=== PATIENT | female | born 1965 | race Caucasian/White ===

== ENCOUNTER 2023-10-11 12:22 | Inpatient (IN) | payer MEDICARE, OTHER ==
[~2023-10-11] VITALS: Ht 170.1 cm; Wt 55.8 kg
[2023-10-11 12:47] VITALS: BP 120/58
[2023-10-11 13:02] LABS: BASO % 0.4 % (0.0-1.0); HEMATOCRIT 35.7 % (37.0-47.0); LYMPH % 38.3 % (27.0-41.0); MEAN CELL VOLUME 94.7 fl (81.0-99.0); MEAN CORPUSCULAR HGB 31.3 pg (27.0-31.0); MEAN CORPUSCULAR HGB CONC 33.1 g/dl (33.0-37.0); MEAN PLATELET VOLUME 8.2 fl (9.6-12.3); MONO # 0.6 10*3/uL (0.1-1.0); MONO % 10.6 % (3.0-9.0); NEUT # 2.6 10*3/uL (2.3-7.9); NEUT % 50.3 % (47.0-73.0); PLATELET COUNT AUTOMATED 199 10*3/uL (130-400); RED BLOOD COUNT 3.77 10*6/uL (4.10-5.10); RED CELL DISTRI WIDTH 13.2 % (0-14.5); WHITE BLOOD COUNT 5.2 10*3/uL (4.8-10.8)
[2023-10-11 13:24] LABS: ALKALINE PHOSPHATASE 50 U/L (46-116); BUN 6 mg/dl (9-23); CHLORIDE 96 mmol/L (98-107); POTASSIUM 5.3 mmol/L (3.4-5.1); SGPT/ALT 15 U/L (5-49)
[2023-10-11 13:25] LABS: ETHYL ALCOHOL < 3.0 mg/dl (<3)
[2023-10-11] MEDS ORDERED: BENZTROPINE ME0.5 MG PO (14:13)
[2023-10-11] MEDS ORDERED: BUSPIRONE HYDRO30 MG PO (14:17)
[2023-10-11] MEDS ORDERED: CLONAZEPAM1 MG PO (14:17)
[2023-10-11] MEDS ORDERED: DEPAKOTE ER500 MG PO (14:18)
[2023-10-11] MEDS ORDERED: DULCOLAX STOOL100 MG PO (14:20)
[2023-10-11] MEDS ORDERED: CLARITIN10 MG PO (14:21)
[2023-10-11] MEDS ORDERED: HYDROXYZINE HCL50 MG PO (14:21)
[2023-10-11] MEDS ORDERED: MIRTAZAPINE45 MG PO (14:22)
[2023-10-11] MEDS ORDERED: OLANZAPINE10 MG PO (14:23)
[2023-10-11] MEDS ORDERED: OMEPRAZOLE40 MG PO (14:24)
[2023-10-11] MEDS ORDERED: VITAMIN D325 MCG PO (14:25)
[2023-10-11 14:58] LABS: BILIRUBIN Negative (Negative); BLOOD Negative (Negative); CLARITY Clear (Clear); COLOR Yellow (Yellow); GLUCOSE Negative (Negative); KETONE Negative (Negative); LEUKO ESTERASE Negative (Negative); NITRITE Negative (Negative); PH 7.5 (4.5-8.0); SPECIFIC GRAVITY <= 1.005 (1.001-1.030)
[2023-10-11 15:05] LABS: URINE AMPHETAMINES Negative (1000ng/ml); URINE BARBITURATES Negative (200ng/ml); URINE BENZODIAZEPINES Negative (200ng/ml); URINE CANNABINOIDS (THC) Negative (50ng/ml); URINE COCAINE Negative (300ng/ml); URINE METHADONE Negative (300ng/ml); URINE OPIATES Negative (300ng/ml); URINE PHENCYCLIDINE Negative (25ng/ml)
[2023-10-11 15:17] LABS: EPITHELIAL CELLS 0-2; WBC 0-2 wbc/hpf (0-5)
[2023-10-11 18:58] VITALS: BP 104/60
[2023-10-12 07:36] VITALS: BP 124/93
[2023-10-12 07:46] LABS: ALKALINE PHOSPHATASE 50 U/L (46-116); BUN 8 mg/dl (9-23); CHLORIDE 100 mmol/L (98-107); CHOLESTEROL 214 mg/dL (<200); LDL CHOLESTEROL 111 mg/dL (9-159); POTASSIUM 4.4 mmol/L (3.4-5.1); SGPT/ALT 12 U/L (5-49); TOTAL PROTEIN 6.4 gm/dL (6.0-8.0); TRIGLYCERIDES 118 mg/dl (<150)
[2023-10-12 08:14] LABS: BASO % 0.4 % (0.0-1.0); EOS % 0.1 % (1.0-4.0); HEMATOCRIT 43.1 % (37.0-47.0); LYMPH # 2.3 10*3/uL (1.3-4.4); LYMPH % 32.4 % (27.0-41.0); MEAN CELL VOLUME 95.1 fl (81.0-99.0); MEAN CORPUSCULAR HGB 31.1 pg (27.0-31.0); MEAN CORPUSCULAR HGB CONC 32.7 g/dl (33.0-37.0); MEAN PLATELET VOLUME 8.3 fl (9.6-12.3); MONO # 0.8 10*3/uL (0.1-1.0); MONO % 10.7 % (3.0-9.0); NEUT % 56.1 % (47.0-73.0); PLATELET COUNT AUTOMATED 237 10*3/uL (130-400); RED BLOOD COUNT 4.53 10*6/uL (4.10-5.10); RED CELL DISTRI WIDTH 13.1 % (0-14.5); WHITE BLOOD COUNT 7.1 10*3/uL (4.8-10.8)
[2023-10-12 20:00] VITALS: BP 101/56
[2023-10-13 08:39] VITALS: BP 91/55
[2023-10-13 20:00] VITALS: BP 108/66
[2023-10-14 07:41] VITALS: BP 91/52
[2023-10-14 19:06] LABS: CLONAZEPAM (KLONOPIN),SERUM 21 ng/mL (20-70)
[2023-10-14 20:00] VITALS: BP 106/58
[2023-10-15 07:56] VITALS: BP 89/54
[2023-10-15 20:00] VITALS: BP 99/60
[2023-10-16 07:28] VITALS: BP 81/51
[2023-10-16 07:47] LABS: BUN 9 mg/dl (9-23); CHLORIDE 102 mmol/L (98-107); POTASSIUM 4.3 mmol/L (3.4-5.1)
[2023-10-16 19:13] VITALS: BP 110/39
[2023-10-17 07:42] VITALS: BP 90/58
[2023-10-17 20:00] VITALS: BP 94/52
[2023-10-18 07:57] VITALS: BP 92/45
[2023-10-18 20:00] VITALS: BP 133/85
[2023-10-19 07:51] VITALS: BP 97/55
[2023-10-19 19:36] VITALS: BP 133/60
[2023-10-20 08:50] VITALS: BP 92/51
[2023-10-20 19:14] VITALS: BP 97/54
[2023-10-21 07:46] VITALS: BP 105/54
[2023-10-21 19:08] VITALS: BP 107/50
[2023-10-22 08:51] VITALS: BP 93/56
[2023-10-22 10:59] LABS: BASO # 0.1 10*3/uL (0.0-0.1); BASO % 0.7 % (0.0-1.0); EOS # 0.2 10*3/uL (0.0-0.4); EOS % 2.3 % (1.0-4.0); HEMATOCRIT 38.3 % (37.0-47.0); LYMPH # 2.1 10*3/uL (1.3-4.4); LYMPH % 28.9 % (27.0-41.0); MEAN CORPUSCULAR HGB 31.6 pg (27.0-31.0); MEAN CORPUSCULAR HGB CONC 32.6 g/dl (33.0-37.0); MEAN PLATELET VOLUME 8.4 fl (9.6-12.3); MONO # 0.9 10*3/uL (0.1-1.0); MONO % 12.3 % (3.0-9.0); NEUT % 55.4 % (47.0-73.0); PLATELET COUNT AUTOMATED 289 10*3/uL (130-400); RED BLOOD COUNT 3.95 10*6/uL (4.10-5.10); RED CELL DISTRI WIDTH 13.7 % (0-14.5); WHITE BLOOD COUNT 7.3 10*3/uL (4.8-10.8)
[2023-10-22 11:20] LABS: ALKALINE PHOSPHATASE 54 U/L (46-116); BUN 11 mg/dl (9-23); CHLORIDE 105 mmol/L (98-107); POTASSIUM 5.1 mmol/L (3.4-5.1); SGPT/ALT 17 U/L (5-49); TOTAL PROTEIN 6.7 gm/dL (6.0-8.0)
[2023-10-22 20:00] VITALS: BP 96/63
[2023-10-23 07:29] VITALS: BP 99/58
[2023-10-23 19:09] VITALS: BP 104/55
[2023-10-24 08:00] VITALS: BP 116/56
[2023-10-24 20:00] VITALS: BP 113/57
[2023-10-25 07:37] VITALS: BP 98/62
[2023-10-25] MEDS ORDERED: CLONAZEPAM1 MG PO (08:18)
[2023-10-25] MEDS ORDERED: KLONOPIN2 M1 PO (08:18)
[2023-10-25] MEDS ORDERED: VRAYLAR1.5 MG PO (08:18)
[2023-10-25] MEDS ORDERED: FLUVOXAMINE50 MG PO ×2 (08:18)
[2023-10-25] MEDS ORDERED: HYDROXYZINE HCL25 MG PO (08:18)
== END 2023-10-25 12:00 | disposition home or self-care (01) | DRG 885 ==
LOC: ED 12:22 → 3N 15:41
PROVIDERS: Counselor Professional; Physician Assistant Medical; Registered Nurse; ADMIT Psychiatry & Neurology Psychiatry; ATTEND Psychiatry & Neurology Psychiatry
PROC: GZHZZZZ Group Psychotherapy (ICD-10-PCS; 2023-10-16)
PROC: GZ51ZZZ Individual Psychotherapy, Behavioral (ICD-10-PCS; 2023-10-16)
PROC: 0HBRXZZ Excision of Toe Nail, External Approach (ICD-10-PCS; principal; 2023-10-21)
PROC: 0HBRXZZ Excision of Toe Nail, External Approach (ICD-10-PCS; 2023-10-21)
PROC: 0HBRXZZ Excision of Toe Nail, External Approach (ICD-10-PCS; 2023-10-21)
PROC: 0HBRXZZ Excision of Toe Nail, External Approach (ICD-10-PCS; 2023-10-21)
PROC: 0HBRXZZ Excision of Toe Nail, External Approach (ICD-10-PCS; 2023-10-21)
PROC: 0HBRXZZ Excision of Toe Nail, External Approach (ICD-10-PCS; 2023-10-21)
PROC: 0HBRXZZ Excision of Toe Nail, External Approach (ICD-10-PCS; 2023-10-21)
PROC: 0HBRXZZ Excision of Toe Nail, External Approach (ICD-10-PCS; 2023-10-21)
PROC: 0HBRXZZ Excision of Toe Nail, External Approach (ICD-10-PCS; 2023-10-21)
PROC: 0HBRXZZ Excision of Toe Nail, External Approach (ICD-10-PCS; 2023-10-21)
DX: F25.0 Schizoaffective disorder, bipolar type (principal); F50.9 Eating disorder, unspecified; E87.1 Hypo-osmolality and hyponatremia; Z68.1 Body mass index [BMI] 19.9 or less, adult; F42.9 Obsessive-compulsive disorder, unspecified; R41.9 Unspecified symptoms and signs involving cognitive functions and awareness; F41.1 Generalized anxiety disorder; R91.1 Solitary pulmonary nodule; F45.0 Somatization disorder; K59.00 Constipation, unspecified; B35.1 Tinea unguium; M13.872 Other specified arthritis, left ankle and foot; Z88.0 Allergy status to penicillin; Z79.899 Other long term (current) drug therapy

== ENCOUNTER 2024-01-31 20:46 | Emergency (ER) | payer MEDICARE, OTHER ==
[~2024-01-31 20:46] MED LIST: BENZTROPINE ME0.5 MG PO; BUSPIRONE HYDRO30 MG PO; CLARITIN10 MG PO; CLONAZEPAM1 MG PO; DEPAKOTE ER500 MG PO; DULCOLAX STOOL100 MG PO; FLUVOXAMINE50 MG PO; HYDROXYZINE HCL25 MG PO; HYDROXYZINE HCL50 MG PO; KLONOPIN2 M1 PO; MIRTAZAPINE45 MG PO; OLANZAPINE10 MG PO; OMEPRAZOLE40 MG PO; VITAMIN D325 MCG PO; VRAYLAR1.5 MG PO
[2024-01-31] MEDS ORDERED: ACETAMINOPHEN 325 MG TAB PO ONE (20:55)
[2024-01-31 21:10] LABS: BASO % 0.4 % (0.0-1.0); EOS % 0.2 % (1.0-4.0); HEMATOCRIT 39.8 % (37.0-47.0); LYMPH # 3.2 10*3/uL (1.3-4.4); LYMPH % 38.7 % (27.0-41.0); MEAN CELL VOLUME 92.6 fl (81.0-99.0); MEAN CORPUSCULAR HGB 30.5 pg (27.0-31.0); MEAN CORPUSCULAR HGB CONC 32.9 g/dl (33.0-37.0); MONO # 0.7 10*3/uL (0.1-1.0); MONO % 7.8 % (3.0-9.0); NEUT # 4.4 10*3/uL (2.3-7.9); NEUT % 52.7 % (47.0-73.0); PLATELET COUNT AUTOMATED 272 10*3/uL (130-400); RED CELL DISTRI WIDTH 12.8 % (0-14.5); WHITE BLOOD COUNT 8.3 10*3/uL (4.8-10.8)
[2024-01-31 21:30] LABS: ALKALINE PHOSPHATASE 79 U/L (46-116); BUN 8 mg/dl (9-23); CHLORIDE 106 mmol/L (98-107); LIPASE 61 U/L (12-53); POTASSIUM 4.5 mmol/L (3.4-5.1); SGPT/ALT 30 U/L (5-49); TOTAL PROTEIN 6.6 gm/dL (6.0-8.0)
[2024-01-31] MEDS ORDERED: Ondansetron Hydrochloride 4 MG/2 ML VIAL IV ONE (21:50)
== END 2024-02-01 08:15 | disposition home or self-care (01) ==
LOC: ED 20:46
PROVIDERS: Physician Assistant Medical
DX: K56.7 Ileus, unspecified (principal); F17.210 Nicotine dependence, cigarettes, uncomplicated; Z79.899 Other long term (current) drug therapy; Z98.51 Tubal ligation status

== ENCOUNTER 2024-02-11 08:34 | Emergency (ER) | payer MEDICARE, OTHER ==
[~2024-02-11] VITALS: Ht 170.1 cm; Wt 49.9 kg
[2024-02-11 08:58] LABS: BASO # 0.1 10*3/uL (0.0-0.1); BASO % 0.8 % (0.0-1.0); EOS % 0.1 % (1.0-4.0); HEMATOCRIT 44.4 % (37.0-47.0); LYMPH # 2.2 10*3/uL (1.3-4.4); LYMPH % 30.4 % (27.0-41.0); MEAN CELL VOLUME 93.3 fl (81.0-99.0); MEAN CORPUSCULAR HGB 30.7 pg (27.0-31.0); MEAN CORPUSCULAR HGB CONC 32.9 g/dl (33.0-37.0); MEAN PLATELET VOLUME 8.8 fl (9.6-12.3); MONO # 0.6 10*3/uL (0.1-1.0); MONO % 8.1 % (3.0-9.0); NEUT # 4.3 10*3/uL (2.3-7.9); NEUT % 60.5 % (47.0-73.0); PLATELET COUNT AUTOMATED 271 10*3/uL (130-400); RED BLOOD COUNT 4.76 10*6/uL (4.10-5.10); WHITE BLOOD COUNT 7.2 10*3/uL (4.8-10.8)
[2024-02-11 09:09] LABS: ACT PARTIAL THROMBO TIME 25.1 SECONDS (20.0-32.1)
[2024-02-11 09:19] LABS: ALKALINE PHOSPHATASE 87 U/L (46-116); BUN 6 mg/dl (9-23); CHLORIDE 102 mmol/L (98-107); POTASSIUM 3.8 mmol/L (3.4-5.1); SGPT/ALT 29 U/L (5-49); TOTAL PROTEIN 7.3 gm/dL (6.0-8.0)
[2024-02-11] MEDS ORDERED: PREDNISONE20 M1 PO (09:27)
[2024-02-11] MEDS ORDERED: ANTIBIOTIC28.4 GM T (09:27)
[2024-02-11] MEDS ORDERED: CEPHALEXIN500 M1 PO (09:27)
== END 2024-02-11 09:34 | disposition home or self-care (01) ==
LOC: ED 08:34
PROVIDERS: Internal Medicine
DX: L25.9 Unspecified contact dermatitis, unspecified cause (principal); F31.9 Bipolar disorder, unspecified; F41.9 Anxiety disorder, unspecified; F25.9 Schizoaffective disorder, unspecified; F17.210 Nicotine dependence, cigarettes, uncomplicated; Z88.0 Allergy status to penicillin; Z98.51 Tubal ligation status; Z98.890 Other specified postprocedural states

== ENCOUNTER 2024-02-28 10:35 | Emergency (ER) | payer MEDICARE, OTHER ==
[~2024-02-28] VITALS: Ht 165.1 cm; Wt 45.4 kg
[~2024-02-28 10:35] MED LIST changes: +ANTIBIOTIC28.4 GM T; +CEPHALEXIN500 M1 PO; +PREDNISONE20 M1 PO
[2024-02-28] MEDS ORDERED: B12 ACTIVE1000 MCG PO (10:40)
[2024-02-28] MEDS ORDERED: FLUVOXAMINE100 MG PO (10:46)
[2024-02-28] MEDS ORDERED: DONEPEZIL HYDRO10 M1 PO (10:52)
[2024-02-28] MEDS ORDERED: IOHEXOL 300 MG/ML 100 ML VIAL IV ONE (11:20)
[2024-02-28] MEDS ORDERED: IOHEXOL 300 MG/ML 100 ML VIAL ONE (11:27)
[2024-02-28 11:33] LABS: BASO # 0.1 10*3/uL (0.0-0.1); BASO % 0.7 % (0.0-1.0); HEMATOCRIT 39.9 % (37.0-47.0); LYMPH # 1.8 10*3/uL (1.3-4.4); LYMPH % 25.6 % (27.0-41.0); MEAN CELL VOLUME 93.2 fl (81.0-99.0); MEAN CORPUSCULAR HGB 30.8 pg (27.0-31.0); MEAN CORPUSCULAR HGB CONC 33.1 g/dl (33.0-37.0); MEAN PLATELET VOLUME 8.4 fl (9.6-12.3); MONO # 0.7 10*3/uL (0.1-1.0); MONO % 9.6 % (3.0-9.0); NEUT # 4.3 10*3/uL (2.3-7.9); NEUT % 63.2 % (47.0-73.0); PLATELET COUNT AUTOMATED 245 10*3/uL (130-400); RED BLOOD COUNT 4.28 10*6/uL (4.10-5.10); RED CELL DISTRI WIDTH 13.5 % (0-14.5); WHITE BLOOD COUNT 6.9 10*3/uL (4.8-10.8)
[2024-02-28 11:41] LABS: ACT PARTIAL THROMBO TIME 22.7 SECONDS (20.0-32.1)
[2024-02-28 11:53] LABS: ALKALINE PHOSPHATASE 50 U/L (46-116); BUN 6 mg/dl (9-23); CHLORIDE 106 mmol/L (98-107); POTASSIUM 4.9 mmol/L (3.4-5.1); SGPT/ALT 23 U/L (5-49)
[2024-02-28 11:58] LABS: ETHYL ALCOHOL < 3.0 mg/dl (<3)
== END 2024-02-28 15:00 | disposition home or self-care (01) ==
LOC: ED 10:35
PROVIDERS: Emergency Medicine
DX: K62.5 Hemorrhage of anus and rectum (principal); F50.9 Eating disorder, unspecified; R41.0 Disorientation, unspecified; F41.9 Anxiety disorder, unspecified; F25.9 Schizoaffective disorder, unspecified; F17.210 Nicotine dependence, cigarettes, uncomplicated; Z88.0 Allergy status to penicillin; Z79.899 Other long term (current) drug therapy; Z98.51 Tubal ligation status

== ENCOUNTER → 2024-03-05 | Outpatient (CLI) | payer MEDICARE, OTHER ==
[~2024-03-05] MED LIST changes: +B12 ACTIVE1000 MCG PO; +DONEPEZIL HYDRO10 M1 PO; +FLUVOXAMINE100 MG PO
[2024-03-05 12:55] LABS: URINE AMPHETAMINES Negative (1000ng/ml); URINE BARBITURATES Negative (200ng/ml); URINE BENZODIAZEPINES Negative (200ng/ml); URINE CANNABINOIDS (THC) Negative (50ng/ml); URINE COCAINE Negative (300ng/ml); URINE METHADONE Negative (300ng/ml); URINE OPIATES Negative (300ng/ml); URINE PHENCYCLIDINE Negative (25ng/ml)
== END | disposition home or self-care (01) ==
LOC: LAB 12:15
PROVIDERS: ATTEND Nurse Practitioner Family
DX: Z79.899 Other long term (current) drug therapy (principal)

== ENCOUNTER 2024-05-27 18:13 | Emergency (ER) | payer MEDICARE, OTHER ==
[~2024-05-27] VITALS: Ht 170.1 cm; Wt 89.4 kg
[2024-05-27] MEDS ORDERED: Bacitracin Zinc 14 GM TUBE T ONE (18:20)
[2024-05-27] MEDS ORDERED: IBUPROFEN 800 MG TAB PO ONE (18:20)
[2024-05-27] MEDS ORDERED: XEROFORM PETRO1 EAC2 TD (18:22)
[2024-05-27] MEDS ORDERED: ANTIBIOTIC28.4 GM T (18:22)
[2024-05-27] MEDS ORDERED: IBU800 M2 PO (18:22)
== END 2024-05-27 18:37 | disposition home or self-care (01) ==
LOC: ED 18:13
DX: T23.202A Burn of second degree of left hand, unspecified site, initial encounter (principal); T31.0 Burns involving less than 10% of body surface; F41.9 Anxiety disorder, unspecified; F31.9 Bipolar disorder, unspecified; F17.210 Nicotine dependence, cigarettes, uncomplicated; Z88.0 Allergy status to penicillin; Z98.51 Tubal ligation status; Z98.890 Other specified postprocedural states; X10.0XXA Contact with hot drinks, initial encounter; Y93.89 Activity, other specified; Y92.89 Other specified places as the place of occurrence of the external cause; Y99.8 Other external cause status

== ENCOUNTER 2024-06-01 13:42 | Emergency (ER) | payer MEDICARE, OTHER ==
[~2024-06-01] VITALS: Ht 167.6 cm; Wt 45.4 kg
[~2024-06-01 13:42] MED LIST changes: +IBU800 M2 PO; +XEROFORM PETRO1 EAC2 TD
[2024-06-01] MEDS ORDERED: Bacitracin Zinc 14 GM TUBE T ONE (14:25)
[2024-06-01] MEDS ORDERED: CEPHALEXIN500 M1 PO (14:27)
== END 2024-06-01 14:32 | disposition home or self-care (01) ==
LOC: ED 13:42
DX: T23.202A Burn of second degree of left hand, unspecified site, initial encounter (principal); T31.0 Burns involving less than 10% of body surface; F31.9 Bipolar disorder, unspecified; F41.9 Anxiety disorder, unspecified; F17.210 Nicotine dependence, cigarettes, uncomplicated; Z88.0 Allergy status to penicillin; Z98.51 Tubal ligation status; Z98.890 Other specified postprocedural states; X10.0XXA Contact with hot drinks, initial encounter; Y93.89 Activity, other specified; Y92.009 Unspecified place in unspecified non-institutional (private) residence as the place of occurrence of the external cause; Y99.8 Other external cause status

== ENCOUNTER 2024-06-16 13:25 | Emergency (ER) | payer MEDICARE, OTHER ==
[~2024-06-16] VITALS: Ht 165.1 cm; Wt 43.5 kg
[2024-06-16] MEDS ORDERED: PREPARATION H26 GM T (14:01)
[2024-06-16] MEDS ORDERED: Bacitracin Zinc 14 GM TUBE T ONE (14:05)
== END 2024-06-16 14:25 | disposition home or self-care (01) ==
LOC: ED 13:25
DX: K64.9 Unspecified hemorrhoids (principal); T23.009A Burn of unspecified degree of unspecified hand, unspecified site, initial encounter; T31.0 Burns involving less than 10% of body surface; F41.9 Anxiety disorder, unspecified; E87.1 Hypo-osmolality and hyponatremia; F31.9 Bipolar disorder, unspecified; F17.210 Nicotine dependence, cigarettes, uncomplicated; Z88.0 Allergy status to penicillin; Z98.51 Tubal ligation status; Z98.890 Other specified postprocedural states; X10.0XXA Contact with hot drinks, initial encounter; Y93.89 Activity, other specified; Y92.009 Unspecified place in unspecified non-institutional (private) residence as the place of occurrence of the external cause; Y99.8 Other external cause status

== ENCOUNTER 2024-06-27 17:48 | Emergency (ER) | payer MEDICARE, OTHER ==
[~2024-06-27] VITALS: Ht 170.1 cm; Wt 42.8 kg
[~2024-06-27 17:48] MED LIST changes: +PREPARATION H26 GM T
[2024-06-27] MEDS ORDERED: ACETAMINOPHEN 325 MG TAB PO ONE (18:10)
[2024-06-27 18:12] LABS: BASO % 0.7 % (0.0-1.0); EOS % 0.2 % (1.0-4.0); HEMATOCRIT 37.4 % (37.0-47.0); LYMPH # 1.7 10*3/uL (1.3-4.4); LYMPH % 30.7 % (27.0-41.0); MEAN CORPUSCULAR HGB 31.4 pg (27.0-31.0); MEAN CORPUSCULAR HGB CONC 33.4 g/dl (33.0-37.0); MEAN PLATELET VOLUME 8.7 fl (9.6-12.3); MONO # 0.5 10*3/uL (0.1-1.0); MONO % 9.5 % (3.0-9.0); NEUT # 3.3 10*3/uL (2.3-7.9); NEUT % 58.9 % (47.0-73.0); PLATELET COUNT AUTOMATED 283 10*3/uL (130-400); RED BLOOD COUNT 3.98 10*6/uL (4.10-5.10); RED CELL DISTRI WIDTH 13.3 % (0-14.5); WHITE BLOOD COUNT 5.7 10*3/uL (4.8-10.8)
[2024-06-27] MEDS ORDERED: IOHEXOL 300 MG/ML 100 ML VIAL IV ONE (18:15)
[2024-06-27 18:31] LABS: ALKALINE PHOSPHATASE 83 U/L (46-116); BUN 6 mg/dl (9-23); CHLORIDE 104 mmol/L (98-107); LIPASE 59 U/L (12-53); POTASSIUM 3.5 mmol/L (3.4-5.1); SGPT/ALT 24 U/L (5-49); TOTAL PROTEIN 6.5 gm/dL (6.0-8.0)
[2024-06-27 18:35] LABS: BILIRUBIN Negative (Negative); BLOOD Negative (Negative); CLARITY Clear (Clear); COLOR Yellow (Yellow); GLUCOSE Negative (Negative); KETONE Negative (Negative); LEUKO ESTERASE Negative (Negative); NITRITE Negative (Negative); SPECIFIC GRAVITY <= 1.005 (1.001-1.030); UROBILINOGEN 0.2 E.U./dl (0.0-1.0)
[2024-06-27 18:42] LABS: EPITHELIAL CELLS 0-2; WBC 0-2 wbc/hpf (0-5)
[2024-06-27] MEDS ORDERED: SODIUM CHLORIDE 0.9% 500 ML IV ONE (20:30)
[2024-06-27] MEDS ORDERED: MIRALAX POWDER17 G1 PO (22:51)
== END 2024-06-27 22:59 | disposition home or self-care (01) ==
LOC: ED 17:48
PROVIDERS: Emergency Medicine
DX: K59.00 Constipation, unspecified (principal); Z20.822 Contact with and (suspected) exposure to COVID-19; R51.9 Headache, unspecified; F41.9 Anxiety disorder, unspecified; F31.9 Bipolar disorder, unspecified; F17.210 Nicotine dependence, cigarettes, uncomplicated; Z88.0 Allergy status to penicillin; Z98.51 Tubal ligation status; Z98.890 Other specified postprocedural states

== ENCOUNTER 2024-06-30 17:56 | Emergency (ER) | payer MEDICARE, OTHER ==
[~2024-06-30 17:56] MED LIST changes: +MIRALAX POWDER17 G1 PO
[2024-06-30] MEDS ORDERED: ACETAMINOPHEN 325 MG TAB PO ONE (18:55)
[2024-06-30 19:03] LABS: BILIRUBIN Negative (Negative); BLOOD Negative (Negative); CLARITY Clear (Clear); COLOR Yellow (Yellow); GLUCOSE Negative (Negative); KETONE Negative (Negative); LEUKO ESTERASE Negative (Negative); NITRITE Negative (Negative); PH 6.5 (4.5-8.0); SPECIFIC GRAVITY <= 1.005 (1.001-1.030); UROBILINOGEN 0.2 E.U./dl (0.0-1.0)
[2024-06-30 19:10] LABS: BASO % 0.4 % (0.0-1.0); EOS % 0.1 % (1.0-4.0); LYMPH # 2.1 10*3/uL (1.3-4.4); LYMPH % 28.9 % (27.0-41.0); MEAN CELL VOLUME 95.7 fl (81.0-99.0); MEAN CORPUSCULAR HGB 30.7 pg (27.0-31.0); MEAN CORPUSCULAR HGB CONC 32.1 g/dl (33.0-37.0); MEAN PLATELET VOLUME 8.6 fl (9.6-12.3); MONO # 0.6 10*3/uL (0.1-1.0); MONO % 8.1 % (3.0-9.0); NEUT # 4.4 10*3/uL (2.3-7.9); NEUT % 62.4 % (47.0-73.0); PLATELET COUNT AUTOMATED 262 10*3/uL (130-400); RED BLOOD COUNT 3.45 10*6/uL (4.10-5.10); RED CELL DISTRI WIDTH 13.2 % (0-14.5); WHITE BLOOD COUNT 7.1 10*3/uL (4.8-10.8)
[2024-06-30 19:12] LABS: BACTERIA TRACE; EPITHELIAL CELLS 0-2
[2024-06-30 19:24] LABS: ACT PARTIAL THROMBO TIME 25.7 SECONDS (20.0-32.1)
[2024-06-30 19:34] LABS: ALKALINE PHOSPHATASE 79 U/L (46-116); BUN 8 mg/dl (9-23); CHLORIDE 105 mmol/L (98-107); POTASSIUM 4.2 mmol/L (3.4-5.1); SGPT/ALT 23 U/L (5-49); TOTAL PROTEIN 6.1 gm/dL (6.0-8.0)
[2024-07-01] MEDS ORDERED: diphenhydrAMINE hydrochloride 50 MG/ML VIAL IM PRN (06:15)
[2024-07-01] MEDS ORDERED: ACETAMINOPHEN 325 MG TAB PO ONE (09:50)
== END 2024-07-01 09:49 | disposition home or self-care (01) ==
LOC: ED 17:56
PROVIDERS: Internal Medicine
DX: K64.9 Unspecified hemorrhoids (principal); R51.9 Headache, unspecified; Z76.89 Persons encountering health services in other specified circumstances; K21.9 Gastro-esophageal reflux disease without esophagitis; F17.210 Nicotine dependence, cigarettes, uncomplicated; Z88.0 Allergy status to penicillin; Z79.899 Other long term (current) drug therapy; Z98.51 Tubal ligation status

== ENCOUNTER 2024-07-16 17:04 | Emergency (ER) | payer MEDICARE, OTHER ==
[~2024-07-16] VITALS: Ht 170.1 cm; Wt 44.2 kg
[2024-07-17] MEDS ORDERED: VRAYLAR3 MG PO (16:07)
[2024-07-17] MEDS ORDERED: EXELON1 EACH T (16:08)
== END 2024-07-16 19:03 | disposition home or self-care (01) ==
LOC: ED 17:04
DX: R45.1 Restlessness and agitation (principal); F41.9 Anxiety disorder, unspecified; F31.9 Bipolar disorder, unspecified; Z88.0 Allergy status to penicillin; Z53.21 Procedure and treatment not carried out due to patient leaving prior to being seen by health care provider

== ENCOUNTER 2024-07-17 09:39 | Inpatient (IN) | payer MEDICARE, OTHER ==
[~2024-07-17] VITALS: Ht 170.1 cm; Wt 44.6 kg
[2024-07-17 09:51] VITALS: BP 122/73
[2024-07-17 10:14] LABS: BASO # 0.1 10*3/uL (0.0-0.1); EOS % 0.5 % (1.0-4.0); MEAN CELL VOLUME 93.4 fl (81.0-99.0); MEAN CORPUSCULAR HGB 31.3 pg (27.0-31.0); MEAN CORPUSCULAR HGB CONC 33.5 g/dl (33.0-37.0); MEAN PLATELET VOLUME 8.5 fl (9.6-12.3); MONO # 0.5 10*3/uL (0.1-1.0); NEUT # 3.7 10*3/uL (2.3-7.9); NEUT % 64.3 % (47.0-73.0); PLATELET COUNT AUTOMATED 313 10*3/uL (130-400); RED BLOOD COUNT 3.64 10*6/uL (4.10-5.10); RED CELL DISTRI WIDTH 13.5 % (0-14.5); WHITE BLOOD COUNT 5.7 10*3/uL (4.8-10.8)
[2024-07-17 10:24] LABS: ACT PARTIAL THROMBO TIME 23.9 SECONDS (20.0-32.1)
[2024-07-17 10:27] LABS: BILIRUBIN Negative (Negative); BLOOD Negative (Negative); CLARITY Cloudy (Clear); COLOR Yellow (Yellow); GLUCOSE Negative (Negative); KETONE Trace (Negative); LEUKO ESTERASE Trace (Negative); NITRITE Negative (Negative)
[2024-07-17 10:35] LABS: ALKALINE PHOSPHATASE 78 U/L (46-116); BUN 10 mg/dl (9-23); CHLORIDE 103 mmol/L (98-107); CPK 185 U/L (34-171); ETHYL ALCOHOL < 3.0 mg/dl (<3); LIPASE 53 U/L (12-53); POTASSIUM 4.4 mmol/L (3.4-5.1); SGPT/ALT 30 U/L (5-49)
[2024-07-17 10:35] LABS: URINE AMPHETAMINES Negative (1000ng/ml); URINE BARBITURATES Negative (200ng/ml); URINE BENZODIAZEPINES Negative (200ng/ml); URINE CANNABINOIDS (THC) Negative (50ng/ml); URINE COCAINE Negative (300ng/ml); URINE METHADONE Negative (300ng/ml); URINE OPIATES Negative (300ng/ml); URINE PHENCYCLIDINE Negative (25ng/ml)
[2024-07-17] MEDS ORDERED: Nicotine 7 MG PATCH T ONE (10:35)
[2024-07-17 10:42] LABS: BACTERIA 2+
[2024-07-17 14:40] VITALS: BP 122/56
[2024-07-17] MEDS ORDERED: VRAYLAR3 MG PO (16:07)
[2024-07-17] MEDS ORDERED: EXELON1 EACH T (16:08)
[2024-07-17 16:17] VITALS: BP 138/87
[2024-07-17 16:20] VITALS: BP 138/67
[2024-07-17] MEDS ORDERED: Magnesium Hydroxide 30 ML UDC PO PRN (16:35)
[2024-07-17] MEDS ORDERED: ACETAMINOPHEN 325 MG TAB PO PRN (16:35)
[2024-07-17] MEDS ORDERED: LORazepam 1 MG TAB PO PRN (16:35)
[2024-07-17] MEDS ORDERED: MG-AL HYDROXIDE/SIMETICONE 30 ML UDC PO PRN (16:35)
[2024-07-17] MEDS ORDERED: Ziprasidone Mesylate 20 MG VIAL IM PRN (16:40)
[2024-07-17] MEDS ORDERED: LORazepam 2 MG/ML VIAL IM PRN (16:40)
[2024-07-17 20:00] VITALS: BP 128/65
[2024-07-17] MEDS ORDERED: clonAZEPAM 2 MG TAB PO SCH (21:00)
[2024-07-17] MEDS ORDERED: Ciprofloxacin Hydrochloride 500 MG TAB PO SCH (21:00)
[2024-07-17] MEDS ORDERED: CARIPRAZINE HCL 3 MG CAPSULE PO SCH (22:00)
[2024-07-18] MEDS ORDERED: OMEPRAZOLE 20 MG CAP PO SCH (06:00)
[2024-07-18 06:37] LABS: BASO # 0.1 10*3/uL (0.0-0.1); BASO % 0.9 % (0.0-1.0); EOS % 0.2 % (1.0-4.0); HEMATOCRIT 32.3 % (37.0-47.0); MEAN CELL VOLUME 92.6 fl (81.0-99.0); MEAN CORPUSCULAR HGB 30.9 pg (27.0-31.0); MEAN CORPUSCULAR HGB CONC 33.4 g/dl (33.0-37.0); MEAN PLATELET VOLUME 8.5 fl (9.6-12.3); MONO # 0.5 10*3/uL (0.1-1.0); MONO % 8.8 % (3.0-9.0); NEUT # 2.8 10*3/uL (2.3-7.9); NEUT % 48.7 % (47.0-73.0); PLATELET COUNT AUTOMATED 278 10*3/uL (130-400); RED BLOOD COUNT 3.49 10*6/uL (4.10-5.10); RED CELL DISTRI WIDTH 13.2 % (0-14.5); WHITE BLOOD COUNT 5.7 10*3/uL (4.8-10.8)
[2024-07-18 07:05] LABS: ALKALINE PHOSPHATASE 66 U/L (46-116); BUN 11 mg/dl (9-23); CHLORIDE 104 mmol/L (98-107); CHOLESTEROL 185 mg/dL (<200); LDL CHOLESTEROL 86 mg/dL (9-159); POTASSIUM 4.2 mmol/L (3.4-5.1); SGPT/ALT 21 U/L (5-49); TOTAL PROTEIN 5.7 gm/dL (6.0-8.0); TRIGLYCERIDES 83 mg/dl (<150)
[2024-07-18 07:16] LABS: VITAMIN D, 25-HYDROXY 45.8 ng/mL (30-100)
[2024-07-18 07:56] VITALS: BP 101/57
[2024-07-18] MEDS ORDERED: clonAZEPAM 1 MG TAB PO SCH (09:00)
[2024-07-18] MEDS ORDERED: Nicotine 14 MG PATCH T SCH (09:00)
[2024-07-18] MEDS ORDERED: DOCUSATE SODIUM 100 MG CAP PO SCH (09:00)
[2024-07-18] MEDS ORDERED: LORATADINE 10 MG TAB PO SCH (09:00)
[2024-07-18] MEDS ORDERED: Rivastigmine Tartrate 4.6 MG/24 HR PATCH T SCH (10:00)
[2024-07-18 20:45] VITALS: BP 98/62
[2024-07-19 07:48] VITALS: BP 86/58
[2024-07-19] MEDS ORDERED: WITCH HAZEL T PRN (13:20)
[2024-07-19 20:00] VITALS: BP 103/51
[2024-07-20 08:00] VITALS: BP 111/45
[2024-07-20] MEDS ORDERED: Rivastigmine Tartrate 9.5 MG/24 HR PATCH T SCH (10:00)
[2024-07-20 20:00] VITALS: BP 98/66
[2024-07-21 07:45] VITALS: BP 99/54
[2024-07-21 20:00] VITALS: BP 94/53
[2024-07-22 08:00] VITALS: BP 101/44
[2024-07-22 08:45] LABS: BASO # 0.1 10*3/uL (0.0-0.1); EOS % 0.2 % (1.0-4.0); HEMATOCRIT 35.7 % (37.0-47.0); MEAN CELL VOLUME 97.5 fl (81.0-99.0); MEAN CORPUSCULAR HGB 30.6 pg (27.0-31.0); MEAN CORPUSCULAR HGB CONC 31.4 g/dl (33.0-37.0); MEAN PLATELET VOLUME 8.8 fl (9.6-12.3); MONO # 0.7 10*3/uL (0.1-1.0); MONO % 10.8 % (3.0-9.0); NEUT # 3.4 10*3/uL (2.3-7.9); NEUT % 54.6 % (47.0-73.0); PLATELET COUNT AUTOMATED 301 10*3/uL (130-400); RED BLOOD COUNT 3.66 10*6/uL (4.10-5.10); RED CELL DISTRI WIDTH 13.2 % (0-14.5); WHITE BLOOD COUNT 6.2 10*3/uL (4.8-10.8)
[2024-07-22 20:00] VITALS: BP 113/52
[2024-07-23 08:31] VITALS: BP 106/52
[2024-07-23] MEDS ORDERED: RIVASTIGMINE 13.3 MG/24 HR TDM T SCH (09:00)
[2024-07-23 20:00] VITALS: BP 101/50
[2024-07-24 08:21] VITALS: BP 116/58
[2024-07-24 19:06] LABS: CLONAZEPAM (KLONOPIN),SERUM 24 ng/mL (20-70)
[2024-07-24 20:00] VITALS: BP 102/55
[2024-07-24] MEDS ORDERED: CARIPRAZINE HCL 1.5 MG CAPSULE PO SCH (21:00)
[2024-07-25 08:00] VITALS: BP 100/59
[2024-07-25 08:27] LABS: ALKALINE PHOSPHATASE 67 U/L (46-116); BUN 12 mg/dl (9-23); CHLORIDE 104 mmol/L (98-107); POTASSIUM 4.1 mmol/L (3.4-5.1); SGPT/ALT 28 U/L (5-49); TOTAL PROTEIN 6.6 gm/dL (6.0-8.0)
[2024-07-25 20:00] VITALS: BP 113/62
[2024-07-26 08:00] VITALS: BP 111/71
[2024-07-26 20:00] VITALS: BP 97/43
[2024-07-26] MEDS ORDERED: clonAZEPAM 1 MG TAB ONE (20:52)
[2024-07-26] MEDS ORDERED: clonAZEPAM 2 MG TAB PO SCH (21:00)
[2024-07-26] MEDS ORDERED: CLONAZEPAM PO SCH (22:00)
[2024-07-27 07:40] VITALS: BP 86/48
[2024-07-27 10:05] VITALS: BP 98/50
[2024-07-27 20:04] VITALS: BP 98/40
[2024-07-27] MEDS ORDERED: clonAZEPAM 1 MG TAB ONE (20:45)
[2024-07-28 08:38] VITALS: BP 97/58
[2024-07-28 20:00] VITALS: BP 119/74
[2024-07-28] MEDS ORDERED: clonAZEPAM 1 MG TAB ONE (20:43)
[2024-07-29 08:00] VITALS: BP 97/59
[2024-07-29 20:00] VITALS: BP 125/73
[2024-07-29] MEDS ORDERED: clonAZEPAM 1 MG TAB ONE (20:35)
[2024-07-30 08:07] VITALS: BP 92/54
[2024-07-30 20:00] VITALS: BP 94/52
[2024-07-30] MEDS ORDERED: clonAZEPAM 1 MG TAB ONE (20:00)
[2024-07-31 07:51] VITALS: BP 96/49
[2024-07-31 20:00] VITALS: BP 104/39
[2024-07-31] MEDS ORDERED: clonAZEPAM 1 MG TAB ONE (20:40)
[2024-08-01 08:00] VITALS: BP 100/47
[2024-08-01] MEDS ORDERED: VRAYLAR1.5 MG PO (10:03)
[2024-08-01] MEDS ORDERED: RIVASTIGMINE1 EAC2 T (10:03)
[2024-08-01] MEDS ORDERED: KLONOPIN2 M1 PO (10:03)
[2024-08-02 17:06] LABS: CLONAZEPAM (KLONOPIN),SERUM 30 ng/mL (20-70)
== END 2024-08-01 15:04 | disposition home or self-care (01) | DRG 885 ==
LOC: ED 09:39 → 3N 15:30
PROVIDERS: Counselor Professional; Internal Medicine; Nurse Practitioner; ADMIT Psychiatry & Neurology Psychiatry; ATTEND Psychiatry & Neurology Psychiatry
PROC: GZHZZZZ Group Psychotherapy (ICD-10-PCS; principal; 2024-07-18)
PROC: GZ51ZZZ Individual Psychotherapy, Behavioral (ICD-10-PCS; 2024-07-18)
DX: F25.9 Schizoaffective disorder, unspecified (principal); N39.0 Urinary tract infection, site not specified; E44.0 Moderate protein-calorie malnutrition; Z68.1 Body mass index [BMI] 19.9 or less, adult; D64.9 Anemia, unspecified; F03.90 Unspecified dementia, unspecified severity, without behavioral disturbance, psychotic disturbance, mood disturbance, and anxiety; F39 Unspecified mood [affective] disorder; F41.1 Generalized anxiety disorder; Z98.51 Tubal ligation status; Z82.0 Family history of epilepsy and other diseases of the nervous system; Z82.49 Family history of ischemic heart disease and other diseases of the circulatory system; Z88.0 Allergy status to penicillin; Z79.899 Other long term (current) drug therapy

== ENCOUNTER 2024-09-14 11:19 | Emergency (ER) | payer MEDICARE, OTHER ==
[~2024-09-14] VITALS: Ht 170.1 cm; Wt 45.4 kg
[~2024-09-14 11:19] MED LIST changes: +EXELON1 EACH T; +RIVASTIGMINE1 EAC2 T; +VRAYLAR3 MG PO
[2024-09-14] MEDS ORDERED: HYDROCORTISONE ACETATE 25 MG SUPP R ONE (12:40)
== END 2024-09-14 12:57 | disposition home or self-care (01) ==
LOC: ED 11:19
DX: K64.9 Unspecified hemorrhoids (principal); D64.9 Anemia, unspecified; F41.9 Anxiety disorder, unspecified; F31.9 Bipolar disorder, unspecified; Z88.0 Allergy status to penicillin; Z98.890 Other specified postprocedural states; Z87.891 Personal history of nicotine dependence

== ENCOUNTER 2024-09-25 18:11 | Inpatient (IN) | payer MEDICARE, OTHER ==
[~2024-09-25] VITALS: Ht 167.6 cm; Wt 46.8 kg
[2024-09-25 18:25] VITALS: BP 138/60
[2024-09-25 19:17] LABS: BILIRUBIN Negative (Negative); BLOOD Negative (Negative); CLARITY Clear (Clear); COLOR Yellow (Yellow); GLUCOSE Negative (Negative); KETONE Negative (Negative); LEUKO ESTERASE Negative (Negative); NITRITE Negative (Negative); SPECIFIC GRAVITY <= 1.005 (1.001-1.030); UROBILINOGEN 0.2 E.U./dl (0.0-1.0)
[2024-09-25 19:25] LABS: URINE AMPHETAMINES Negative (1000ng/ml); URINE BARBITURATES Negative (200ng/ml); URINE BENZODIAZEPINES Negative (200ng/ml); URINE CANNABINOIDS (THC) Negative (50ng/ml); URINE COCAINE Negative (300ng/ml); URINE METHADONE Negative (300ng/ml); URINE OPIATES Negative (300ng/ml); URINE PHENCYCLIDINE Negative (25ng/ml)
[2024-09-25 19:28] LABS: WBC 0-2 wbc/hpf (0-5)
[2024-09-25 19:28] LABS: BASO % 0.5 % (0.0-1.0); EOS % 0.1 % (1.0-4.0); HEMATOCRIT 33.4 % (37.0-47.0); MEAN CELL VOLUME 90.8 fl (81.0-99.0); MEAN CORPUSCULAR HGB 28.5 pg (27.0-31.0); MEAN CORPUSCULAR HGB CONC 31.4 g/dl (33.0-37.0); MEAN PLATELET VOLUME 8.2 fl (9.6-12.3); MONO # 0.8 10*3/uL (0.1-1.0); MONO % 9.7 % (3.0-9.0); NEUT # 4.5 10*3/uL (2.3-7.9); NEUT % 56.8 % (47.0-73.0); PLATELET COUNT AUTOMATED 305 10*3/uL (130-400); RED BLOOD COUNT 3.68 10*6/uL (4.10-5.10); RED CELL DISTRI WIDTH 13.1 % (0-14.5); WHITE BLOOD COUNT 7.9 10*3/uL (4.8-10.8)
[2024-09-25 19:55] LABS: BUN 7 mg/dl (9-23); CHLORIDE 107 mmol/L (98-107); ETHYL ALCOHOL < 3.0 mg/dl (<3); POTASSIUM 4.9 mmol/L (3.4-5.1)
[2024-09-25 22:24] VITALS: BP 138/71
[2024-09-26] MEDS ORDERED: LORazepam 2 MG/ML VIAL IM PRN (00:55)
[2024-09-26] MEDS ORDERED: Ziprasidone Mesylate 20 MG VIAL IM PRN (00:55)
[2024-09-26] MEDS ORDERED: Water, Sterile 10 ML VIAL IM PRN (00:55)
[2024-09-26] MEDS ORDERED: LORazepam 1 MG TAB PO PRN (00:55)
[2024-09-26] MEDS ORDERED: ACETAMINOPHEN 325 MG TAB PO PRN (01:30)
[2024-09-26] MEDS ORDERED: OMEPRAZOLE 20 MG CAP PO SCH (06:00)
[2024-09-26 06:46] LABS: BASO # 0.1 10*3/uL (0.0-0.1); BASO % 0.9 % (0.0-1.0); EOS % 0.4 % (1.0-4.0); HEMATOCRIT 34.8 % (37.0-47.0); MEAN CELL VOLUME 89.9 fl (81.0-99.0); MEAN CORPUSCULAR HGB 28.4 pg (27.0-31.0); MEAN CORPUSCULAR HGB CONC 31.6 g/dl (33.0-37.0); MEAN PLATELET VOLUME 8.8 fl (9.6-12.3); MONO # 0.7 10*3/uL (0.1-1.0); MONO % 10.6 % (3.0-9.0); NEUT % 43.6 % (47.0-73.0); PLATELET COUNT AUTOMATED 308 10*3/uL (130-400); RED BLOOD COUNT 3.87 10*6/uL (4.10-5.10); WHITE BLOOD COUNT 6.8 10*3/uL (4.8-10.8)
[2024-09-26 06:47] LABS: ALKALINE PHOSPHATASE 73 U/L (46-116); BUN 9 mg/dl (9-23); CHLORIDE 105 mmol/L (98-107); POTASSIUM 4.3 mmol/L (3.4-5.1); SGPT/ALT 29 U/L (5-49); VITAMIN D, 25-HYDROXY 33.4 ng/mL (30-100)
[2024-09-26 08:18] VITALS: BP 106/59
[2024-09-26] MEDS ORDERED: clonAZEPAM 1 MG TAB PO SCH (09:00)
[2024-09-26] MEDS ORDERED: PREPARATION H SRF/SHARK LIVER 1 OZ TUBE R SCH (09:00)
[2024-09-26] MEDS ORDERED: LORATADINE 10 MG TAB PO SCH (10:00)
[2024-09-26] MEDS ORDERED: DOCUSATE SODIUM 100 MG CAP PO SCH (10:00)
[2024-09-26] MEDS ORDERED: RIVASTIGMINE 13.3 MG/24 HR TDM T SCH (10:00)
[2024-09-26] MEDS ORDERED: LURASIDONE HYDROCHLORIDE 40 MG TAB PO ONE (13:25)
[2024-09-26] MEDS ORDERED: Magnesium Hydroxide 30 ML UDC PO PRN (16:40)
[2024-09-26] MEDS ORDERED: MG-AL HYDROXIDE/SIMETICONE 30 ML UDC PO PRN (16:40)
[2024-09-26 20:00] VITALS: BP 103/57
[2024-09-26] MEDS ORDERED: clonAZEPAM 2 MG TAB PO SCH (21:00)
[2024-09-26] MEDS ORDERED: LURASIDONE HYDROCHLORIDE 40 MG TAB PO SCH ×2 (21:00)
[2024-09-27 07:26] LABS: VITAMIN D, 25-HYDROXY 39.5 ng/mL (30-100)
[2024-09-27 08:00] VITALS: BP 100/49
[2024-09-27] MEDS ORDERED: QUETIAPINE FUMARATE 25 MG TAB PO SCH (13:00)
[2024-09-27 19:44] VITALS: BP 112/62
[2024-09-27] MEDS ORDERED: QUETIAPINE FUMARATE 50 MG TAB PO SCH (21:00)
[2024-09-28 07:41] VITALS: BP 108/59
[2024-09-28 20:00] VITALS: BP 121/61
[2024-09-29 07:59] VITALS: BP 102/48
[2024-09-29 19:12] VITALS: BP 107/67
[2024-09-30 07:57] VITALS: BP 99/68
[2024-09-30] MEDS ORDERED: Nicotine 7 MG PATCH T SCH (09:00)
[2024-09-30] MEDS ORDERED: QUETIAPINE FUMARATE 50 MG TAB PO SCH (09:25)
[2024-09-30 20:00] VITALS: BP 102/55
[2024-10-01 08:00] VITALS: BP 108/51
[2024-10-01 20:00] VITALS: BP 107/58
[2024-10-02 08:00] VITALS: BP 104/73
[2024-10-02 20:00] VITALS: BP 108/60
[2024-10-03 08:22] VITALS: BP 98/62
[2024-10-03] MEDS ORDERED: Benzocaine/Menthol 1 LOZ LOZENGE PO PRN (08:50)
[2024-10-03 20:00] VITALS: BP 118/62
[2024-10-03] MEDS ORDERED: clonAZEPAM 2 MG TAB PO SCH (21:00)
[2024-10-04 07:38] VITALS: BP 98/50
[2024-10-04] MEDS ORDERED: RIVASTIGMINE1 EAC2 T (11:30)
[2024-10-04] MEDS ORDERED: QUETIAPINE FUMA50 M1 PO (11:30)
[2024-10-04] MEDS ORDERED: FLUVOXAMINE50 MG PO (11:37)
== END 2024-10-04 13:10 | DRG 885 ==
LOC: ED 18:11 → 3N 20:08
PROVIDERS: Nurse Practitioner Family; ADMIT Psychiatry & Neurology Psychiatry; ATTEND Psychiatry & Neurology Psychiatry
PROC: GZHZZZZ Group Psychotherapy (ICD-10-PCS; principal; 2024-09-26)
PROC: GZ51ZZZ Individual Psychotherapy, Behavioral (ICD-10-PCS; 2024-09-26)
DX: F25.0 Schizoaffective disorder, bipolar type (principal); E44.0 Moderate protein-calorie malnutrition; Z68.1 Body mass index [BMI] 19.9 or less, adult; K64.9 Unspecified hemorrhoids; F39 Unspecified mood [affective] disorder; D64.9 Anemia, unspecified; F42.9 Obsessive-compulsive disorder, unspecified; F41.9 Anxiety disorder, unspecified; Z91.011 Allergy to milk products; Z87.891 Personal history of nicotine dependence; Z88.0 Allergy status to penicillin; Z98.51 Tubal ligation status; Z81.8 Family history of other mental and behavioral disorders; Z82.49 Family history of ischemic heart disease and other diseases of the circulatory system; Z91.014 Allergy to mammalian meats

== ENCOUNTER 2024-11-25 20:48 | Emergency (ER) | payer MEDICARE, OTHER ==
[~2024-11-25] VITALS: Ht 167.6 cm; Wt 55.8 kg
[~2024-11-25 20:48] MED LIST changes: +QUETIAPINE FUMA50 M1 PO
[2024-11-25] MEDS ORDERED: Ondansetron Hydrochloride 4 MG TAB SL ONE (21:50)
[2024-11-25 22:20] LABS: BASO % 0.3 % (0.0-1.0); EOS # 0.1 10*3/uL (0.0-0.4); EOS % 0.7 % (1.0-4.0); HEMATOCRIT 32.3 % (37.0-47.0); MEAN CELL VOLUME 88.3 fl (81.0-99.0); MEAN CORPUSCULAR HGB 28.1 pg (27.0-31.0); MEAN CORPUSCULAR HGB CONC 31.9 g/dl (33.0-37.0); MEAN PLATELET VOLUME 8.6 fl (9.6-12.3); MONO # 0.8 10*3/uL (0.1-1.0); MONO % 8.1 % (3.0-9.0); NEUT # 6.1 10*3/uL (2.3-7.9); NEUT % 61.1 % (47.0-73.0); PLATELET COUNT AUTOMATED 245 10*3/uL (130-400); RED BLOOD COUNT 3.66 10*6/uL (4.10-5.10); RED CELL DISTRI WIDTH 14.7 % (0-14.5); WHITE BLOOD COUNT 9.9 10*3/uL (4.8-10.8)
[2024-11-25 22:40] LABS: BUN 8 mg/dl (9-23); CHLORIDE 103 mmol/L (98-107); POTASSIUM 3.6 mmol/L (3.4-5.1)
[2024-11-25] MEDS ORDERED: Acetaminophen/Hydrocodone 5 MG/325 MG TABLET PO ONE (23:40)
== END 2024-11-26 05:24 | disposition home or self-care (01) ==
LOC: ED 20:48
PROVIDERS: Emergency Medicine
DX: K62.3 Rectal prolapse (principal); R11.10 Vomiting, unspecified; Z20.822 Contact with and (suspected) exposure to COVID-19; R19.7 Diarrhea, unspecified; F41.9 Anxiety disorder, unspecified; D64.9 Anemia, unspecified; F31.9 Bipolar disorder, unspecified; Z88.0 Allergy status to penicillin; Z91.011 Allergy to milk products; Z87.891 Personal history of nicotine dependence; Z98.890 Other specified postprocedural states

== ENCOUNTER 2025-01-29 17:55 | Emergency (ER) | payer OTHER ==
[~2025-01-29] VITALS: Ht 167.6 cm; Wt 45.4 kg
[2025-01-29 19:06] LABS: BASO # 0.1 10*3/uL (0.0-0.1); BASO % 0.8 % (0.0-1.0); EOS % 0.5 % (1.0-4.0); HEMATOCRIT 35.4 % (37.0-47.0); MEAN CELL VOLUME 90.1 fl (81.0-99.0); MEAN CORPUSCULAR HGB CONC 32.2 g/dl (33.0-37.0); MONO # 0.6 10*3/uL (0.1-1.0); NEUT # 3.1 10*3/uL (2.3-7.9); NEUT % 50.1 % (47.0-73.0); PLATELET COUNT AUTOMATED 283 10*3/uL (130-400); RED BLOOD COUNT 3.93 10*6/uL (4.10-5.10); RED CELL DISTRI WIDTH 15.5 % (0-14.5); WHITE BLOOD COUNT 6.3 10*3/uL (4.8-10.8)
[2025-01-29 19:38] LABS: BUN 15 mg/dl (9-23); CHLORIDE 104 mmol/L (98-107); POTASSIUM 3.5 mmol/L (3.4-5.1)
[2025-01-29] MEDS ORDERED: LORazepam 1 MG TAB PO ONE (19:50)
== END 2025-01-29 20:44 | disposition home or self-care (01) ==
LOC: ED 17:55
PROVIDERS: Nurse Practitioner Family
DX: F41.1 Generalized anxiety disorder (principal); F20.9 Schizophrenia, unspecified; F31.9 Bipolar disorder, unspecified; F41.9 Anxiety disorder, unspecified; Z20.822 Contact with and (suspected) exposure to COVID-19; Z79.899 Other long term (current) drug therapy; Z88.0 Allergy status to penicillin; Z91.011 Allergy to milk products; Z98.51 Tubal ligation status; Z98.890 Other specified postprocedural states

== ENCOUNTER 2025-02-11 19:50 | Emergency (ER) | payer OTHER ==
[~2025-02-11] VITALS: Wt 45.8 kg
[2025-02-11] MEDS ORDERED: Ketorolac Tromethamine 30 MG/ML VIAL IM ONE (21:05)
[2025-02-12] MEDS ORDERED: TRAMADOL HCL50 MG PO (17:10)
== END 2025-02-11 21:12 | disposition home or self-care (01) ==
LOC: ED 19:50
DX: K62.3 Rectal prolapse (principal); Z88.0 Allergy status to penicillin; Z91.011 Allergy to milk products; Z79.899 Other long term (current) drug therapy; Z87.891 Personal history of nicotine dependence

== ENCOUNTER 2025-02-12 16:14 | Emergency (ER) | payer OTHER ==
[~2025-02-12] VITALS: Ht 165.1 cm; Wt 49.5 kg
[2025-02-12] MEDS ORDERED: Acetaminophen/Oxycodone 5 MG/325 MG TABLET PO ONE (17:05)
[2025-02-12] MEDS ORDERED: TRAMADOL HCL50 MG PO (17:10)
== END 2025-02-12 17:16 | disposition home or self-care (01) ==
LOC: ED 16:14
DX: K62.3 Rectal prolapse (principal); F25.9 Schizoaffective disorder, unspecified; Z79.899 Other long term (current) drug therapy; Z88.0 Allergy status to penicillin; Z91.011 Allergy to milk products; Z98.51 Tubal ligation status; Z98.890 Other specified postprocedural states

== ENCOUNTER 2025-02-15 09:09 | Emergency (ER) | payer OTHER ==
[~2025-02-15] VITALS: Ht 170.1 cm; Wt 46.3 kg
[~2025-02-15 09:09] MED LIST changes: +TRAMADOL HCL50 MG PO
== END 2025-02-15 12:02 | disposition left against medical advice (07) ==
LOC: ED 09:09
DX: K62.89 Other specified diseases of anus and rectum (principal); Z53.21 Procedure and treatment not carried out due to patient leaving prior to being seen by health care provider; Z91.011 Allergy to milk products; Z88.0 Allergy status to penicillin; Z79.899 Other long term (current) drug therapy; Z87.891 Personal history of nicotine dependence

== ENCOUNTER 2025-02-16 20:42 | Emergency (ER) | payer OTHER | END 2025-02-16 23:18 | disposition home or self-care (01) | LOC: ED 20:42 | DX: K62.3 Rectal prolapse (principal); Z88.0 Allergy status to penicillin; Z91.011 Allergy to milk products; Z79.899 Other long term (current) drug therapy; Z87.891 Personal history of nicotine dependence ==